=== PATIENT | female | born 1985 | race Caucasian/White ===

== ENCOUNTER 2021-04-16 17:48 | Emergency (ER) | payer BC, OTHER ==
[2021-04-16 17:58] VITALS: BP 140/89; PULSE 64
--- NOTE | 2021-04-16 18:29 | EDM.PDOC ---
ED HPI GENERAL MEDICAL PROBLEM - General Chief Complaint: Diabetic Complaint Stated Complaint: DIABETIC COMPLICATIONS Time Seen by Provider: 04/16/21 17:58 Source of Information: Reports: Patient, RN Notes Reviewed History Limitations: Reports: No Limitations - History of Present Illness INITIAL COMMENTS - FREE TEXT/NARRATIVE: Patient is a 35-year-old female who presents to the ER for a insulin pump malfunction. She states she got a warning on her insulin pump, that it had malfunction. She presents to the ER in need of long-acting insulin, and needles at this time. She is unaware what her basal rate is, she states she has been a type I diabetic since she has been a young child and has normally had an insulin pump/glucose monitor to help her control her diabetes. She is denying any sick- like symptoms fevers or chills, cough shortness of breath, nausea/vomiting/diarrhea. - Related Data Allergies Allergy/AdvReac Type Severity Reaction Status Date / Time No Known Allergies Allergy Verified 05/29/15 20:31 Home Meds: Home Meds Insulin Glargine,Hum.Rec.Anlog [Lantus Solostar] 12 unit SQ DAILY #1 pen 04/16/21 [Rx] Lancets [Bd Ultra-Fine] 1 each MC ASDIRECTED #1 box 04/16/21 [Rx] Ripon, Insulin Disposable [Carefine Pen Needle] 1 each MC ASDIRECTED #1 box 04/16/21 [Rx] Past Medical History Endocrine/Metabolic History: Reports: Diabetes, Type I Insulin Pump Model and Functional Tester Typewriters: Dexcom pump/CGM Who Manages Your Pump: Patient (Self) Social & Family History - Tobacco Use Tobacco Use Status *Q: Never Tobacco User Second Hand Smoke Exposure: No - Caffeine Use Caffeine Use: Reports: Coffee - Recreational Drug Use Recreational Drug Use: No ED ROS GENERAL - Review of Systems Review Of Systems: Comprehensive ROS is negative, except as noted in HPI. ED EXAM GENERAL NO PERIP PULSE - Physical Exam Exam: See Below Exam Limited By: No Limitations General Appearance: Alert, WD/WN, No Apparent Distress Respiratory/Chest: No Respiratory Distress, Lungs Clear, Normal Breath Sounds, No Accessory Muscle Use, Chest Non-Tender Cardiovascular: Normal Peripheral Pulses, Regular Rate, Rhythm, No Edema Neurological: Alert, Oriented, Normal Cognition, No Motor/Sensory Deficits Psychiatric: Normal Affect, Normal Mood Skin Exam: Warm, Dry, Intact, Normal Color, No Rash Course - Vital Signs Last Recorded V/S: Last Vital Signs Temp 98.0 F 04/16/21 17:58 Pulse 64 04/16/21 17:58 Resp 18 04/16/21 17:58 BP 140/89 04/16/21 17:58 Pulse Ox 100 04/16/21 17:58 - Re-Assessments/Exams Free Text/Narrative Re-Assessment/Exam: 04/16/21 18:31 Patient presents to the ER in need of long-acting insulin, I did confer with Dr. Rodriguez, and we did settle on 12 units to try and start with. She will be given directions for a medium type sliding insulin scale for short-acting purposes, she is aware that she will have to be more active and monitoring her blood sugars on her own. I did provide her with insulin pen prescription and needles prescription for ongoing management for the next few days. Departure - Departure Time of Disposition: 18:25 Disposition: Home, Self-Care 01 Condition: Good Clinical Impression: Mechanical complication, insulin pump Qualifiers: Device type: other Mechanical complication type: mechanical breakdown Encounter type: initial encounter Qualified Code(s): T85.614A - Breakdown (mechanical) of insulin pump, initial encounter - Discharge Information *PRESCRIPTION DRUG MONITORING PROGRAM REVIEWED*: No *COPY OF PRESCRIPTION DRUG MONITORING REPORT IN PATIENT JOHN: No Prescriptions: Lancets [Bd Ultra-Fine] 1 each ASDIRECTED #1 box Ripon, Insulin Disposable [Carefine Pen Needle] 1 each ASDIRECTED #1 box Insulin Glargine,Hum.Rec.Anlog [Lantus Solostar] 12 unit SQ DAILY #1 pen Referrals: Reanna Green PA-C [Primary Care Provider] - Forms: ED Department Discharge Additional Instructions: You were evaluated in the ER today for your insulin pump malfunction. You have been provided with a long-acting insulin pen, Levemir, you will need to take 12 units daily until you can get your new insulin pump from the company. You should start on a sliding scale for short acting insulin purposes, on a medium sliding scale dosage, if your blood sugar is under 150, you should not need any sort of insulin, if your blood sugar is 150-200, you should use 2 units, 200-250, 4 units, 250 to 300 6 units, 300-350, 8 units and so on. However if her blood sugar is getting that high, you should probably get seen by a provider to make sure that there is nothing else wrong. You should check your blood sugars at least 3-4 times a day while you are waiti ng for insulin pump to be delivered, please watch your carbohydrate intake as well. You have been provided with a prescription for needles as well, the pharmacy has been called and made aware of the prescription and they should be able to provide you with what you need. Please do not hesitate to return to the ER at any time if symptoms change or worsen. Sepsis Event Note (ED) - Evaluation Sepsis Screening Result: No Definite Risk - Focused Exam Vital Signs: Vital Signs Temp Pulse Resp BP Pulse Ox 04/16/21 17:58 98.0 F 64 18 140/89 100
== END 2021-04-16 18:51 | disposition home or self-care (01) ==
LOC: JD.ED 17:48
DX: T85.614A Breakdown (mechanical) of insulin pump, initial encounter (principal)
CPT/HCPCS: 99283